=== PATIENT | female | born 1950 | race Caucasian/White ===

== ENCOUNTER 2020-11-18 22:01 | Inpatient (IN) ==
[2020-11-18] MEDS ORDERED: SODIUM CHLORIDE 0.9% 1,000 ML IV STA (22:28)
[2020-11-18] MEDS ORDERED: ASPIRIN 325 MG TABLET PO STA (22:28)
[2020-11-18 22:51] LABS: Basophils % 0.2 % (0.0-0.8); Eosinophils # 0.1 10*3/uL (0.0-0.87); Eosinophils % 0.7 % (0.00-10.9); Hematocrit 34.7 VOL% (35.7-47.0); Hemoglobin 11.4 GM/DL (12.0-16.0); Immature Granulocytes % 1.3 %; Immature Granulocytes Absolute 0.11 #; Lymphocytes # 1.5 10*3/uL (1.4-4.0); Lymphocytes % 17.7 % (21.3-54.2); Mean Corpuscular HGB Conc 32.9 GM/DL (32-36); Mean Corpuscular Volume 83.8 FL (87-102); Monocytes % 9.9 % (1.7-12.7); Neutrophils % 70.2 % (38.7-73.9); Platelet Count 246 T/CUMM (130-400); Red Blood Count 4.14 MC/CUMM (3.8-5.5); White Blood Count 8.6 T/CUMM (4-12)
[2020-11-18] MEDS ORDERED: NITROGLYCERIN SL 0.4 MG TABLET SL PRN (22:59)
[2020-11-18] MEDS ORDERED: NITROGLYCERIN SL 0.4 MG TABLET SL ONE (23:01)
[2020-11-18 23:12] LABS: INR 0.9; PT Patient Result 10.4 SECS (10.5-12.0)
[2020-11-18 23:18] LABS: Albumin 2.9 G/DL (3.4-5.0); Bilirubin,Total 0.5 MG/DL (0.20-1.00); Calcium 8.2 MG/DL (8.5-10.1); Osmolality,Calculated 289.8 MOS/KG (273-304); Potassium 3.8 MMOL/L (3.5-5.1); Total Protein 7.1 G/DL (6.4-8.2)
[2020-11-18] MEDS ORDERED: ONDANSETRON 4 MG/2 ML VIAL IV ONE (23:19)
[2020-11-18] MEDS ORDERED: MORPHINE 2 MG/1 ML SYRINGE IV STA (23:19)
[2020-11-18] MEDS ORDERED: TICAGRELOR 90 MG TABLET PO STA (23:19)
[2020-11-18] MEDS ORDERED: INSULIN REGULAR 100 UNIT/ML IV STA (23:25)
[2020-11-18] MEDS ORDERED: METOPROLOL TARTRATE 5 MG/5 ML VIAL IV STA (23:25)
[2020-11-19] MEDS ORDERED: DEXTROSE 50% 25 GM/50 ML VIAL IV PRN (03:24)
[2020-11-19] MEDS ORDERED: GLUCAGON 1 MG VIAL IM PRN (03:24)
[2020-11-19] MEDS ORDERED: DOCUSATE SODIUM 100 MG CAPSULE PO PRN (03:46)
[2020-11-19] MEDS ORDERED: hydrALAZINE 20 MG/1 ML VIAL IV PRN (03:46)
[2020-11-19] MEDS ORDERED: ACETAMINOPHEN 325 MG TABLET PO PRN (03:46)
[2020-11-19] MEDS ORDERED: MORPHINE 2 MG/1 ML SYRINGE IV PRN (03:46)
[2020-11-19 05:30] LABS: Basophils % 0.4 % (0.0-0.8); Eosinophils # 0.1 10*3/uL (0.0-0.87); Eosinophils % 0.8 % (0.00-10.9); Hematocrit 32.8 VOL% (35.7-47.0); Hemoglobin 10.8 GM/DL (12.0-16.0); Immature Granulocytes % 1.4 %; Lymphocytes # 1.9 10*3/uL (1.4-4.0); Mean Corpuscular HGB Conc 32.9 GM/DL (32-36); Mean Platelet Volume 9.9 FL (9.6-12.0); Monocytes % 12.6 % (1.7-12.7); Neutrophils % 58.8 % (38.7-73.9); Platelet Count 228 T/CUMM (130-400); Red Blood Count 3.95 MC/CUMM (3.8-5.5); White Blood Count 7.4 T/CUMM (4-12)
[2020-11-19 06:01] LABS: Calcium 8.4 MG/DL (8.5-10.1); Osmolality,Calculated 290.8 MOS/KG (273-304); Potassium 3.8 MMOL/L (3.5-5.1); Risk Ratio 7.03; VLDL Cholesterol 79.6 MG/DL
[2020-11-19] MEDS ORDERED: LABETALOL 20 MG/4 ML SYRINGE IV ONE (07:53)
[2020-11-19] MEDS ORDERED: atenoloL 25 MG TABLET PO SCH (09:00)
[2020-11-19] MEDS ORDERED: ENOXAPARIN 80 MG/0.8 ML SYRINGE SUBCUT SCH (09:00)
[2020-11-19] MEDS: ONDANSETRON 4 MG/2 ML VIAL IV PRN ×2 (09:04→19:29)
[2020-11-19] MEDS: LOSARTAN 50 MG TABLET PO SCH (09:05)
[2020-11-19] MEDS: MEMANTINE 10 MG TABLET PO SCH (09:06)
[2020-11-19] MEDS: SERTRALINE 50 MG TABLET PO SCH (09:06)
[2020-11-19] MEDS: DIVALPROEX ER 250 MG TABLET PO SCH ×2 (09:06→20:41)
[2020-11-19] MEDS: DOXAZOSIN 1 MG TABLET PO SCH ×2 (09:11→20:41)
[2020-11-19] MEDS: INSULIN REGULAR 100 UNIT/ML SUBCUT SCH ×4 (09:33→20:42)
[2020-11-19] MEDS ORDERED: MAGNESIUM SULF RIDER 2 GM/50 ML PREMIX IV PRN (10:03)
[2020-11-19] MEDS ORDERED: POTASSIUM CHLORIDE RIDER 10 MEQ/100 ML PREMIX IV PRN (10:03)
[2020-11-19] MEDS ORDERED: atenoloL 25 MG TABLET PO ONE (10:19)
[2020-11-19] MEDS: SODIUM CHLORIDE 0.9% 1,000 ML IV SCH (13:02)
[2020-11-19] MEDS ORDERED: diphenhydrAMINE CAP 50 MG CAPSULE PO ONE (13:30)
[2020-11-19] MEDS ORDERED: DIAZEPAM 5 MG TABLET PO ONE (13:30)
[2020-11-19] MEDS ORDERED: MIDAZOLAM 2 MG/2 ML VIAL ONE (14:16)
[2020-11-19] MEDS ORDERED: fentaNYL 100 MCG/2 ML VIAL ONE (14:16)
[2020-11-19] MEDS ORDERED: LIDOCAINE 1% 20 ML VIAL ONE (14:18)
[2020-11-19] MEDS ORDERED: HEPARIN 5,000 UNIT/1 ML VIAL ONE (14:56)
[2020-11-19] MEDS ORDERED: TIROFIBAN 5,000 MCG/100 ML PREMIX IV ONE (14:57)
[2020-11-19] MEDS ORDERED: TIROFIBAN 5,000 MCG/100 ML PREMIX IV SCH (15:03)
[2020-11-19] MEDS ORDERED: TICAGRELOR 90 MG TABLET ONE (15:06)
[2020-11-19] MEDS: rOPINIRole 1 MG TABLET PO SCH (20:41)
[2020-11-19] MEDS: TICAGRELOR 90 MG TABLET PO SCH (20:41)
[2020-11-19] MEDS: TEMAZEPAM 7.5 MG CAPSULE PO SCH (20:41)
[2020-11-19] MEDS: cilostazoL 50 MG TABLET PO SCH (20:47)
[2020-11-20 01:19] LABS: Basophils % 0.4 % (0.0-0.8); Eosinophils # 0.1 10*3/uL (0.0-0.87); Eosinophils % 1.1 % (0.00-10.9); Hematocrit 29.8 VOL% (35.7-47.0); Hemoglobin 9.8 GM/DL (12.0-16.0); Immature Granulocytes % 0.8 %; Immature Granulocytes Absolute 0.06 #; Lymphocytes # 1.8 10*3/uL (1.4-4.0); Lymphocytes % 22.9 % (21.3-54.2); Mean Corpuscular HGB Conc 32.9 GM/DL (32-36); Mean Corpuscular Volume 83.9 FL (87-102); Mean Platelet Volume 9.4 FL (9.6-12.0); Monocytes % 11.3 % (1.7-12.7); Neutrophils % 63.5 % (38.7-73.9); Platelet Count 202 T/CUMM (130-400); Red Blood Count 3.55 MC/CUMM (3.8-5.5); Red Cell Distribution Width 13.3 % (9.3-17.3); White Blood Count 7.9 T/CUMM (4-12)
[2020-11-20] MEDS: SODIUM CHLORIDE 0.9% 1,000 ML IV SCH (01:23)
[2020-11-20 01:35] LABS: Calcium 7.6 MG/DL (8.5-10.1); Osmolality,Calculated 283.5 MOS/KG (273-304); Potassium 3.2 MMOL/L (3.5-5.1)
[2020-11-20] MEDS ORDERED: POTASSIUM CHLORIDE 20 MEQ TABLET PO ONE (08:24)
[2020-11-20] MEDS ORDERED: MAGNESIUM OXIDE 400 MG TABLET PO ONE (08:25)
[2020-11-20] MEDS ORDERED: POTASSIUM CHLORIDE 20 MEQ TABLET PO PRN (08:39)
[2020-11-20] MEDS ORDERED: ASPIRIN EC 81 MG TABLET PO SCH (09:00)
[2020-11-20] MEDS ORDERED: LIDOCAINE 1%/EPI INJ 20 ML VIAL ONE (09:34)
[2020-11-20] MEDS: DIVALPROEX ER 250 MG TABLET PO SCH ×2 (10:19→20:30)
[2020-11-20] MEDS: atenoloL 25 MG TABLET PO SCH (10:19)
[2020-11-20] MEDS: SERTRALINE 50 MG TABLET PO SCH (10:20)
[2020-11-20] MEDS: MEMANTINE 10 MG TABLET PO SCH (10:20)
[2020-11-20] MEDS: DOXAZOSIN 1 MG TABLET PO SCH (10:20)
[2020-11-20] MEDS: ASPIRIN CHEW 81 MG TABLET PO SCH (10:20)
[2020-11-20] MEDS: cilostazoL 50 MG TABLET PO SCH ×2 (10:20→20:30)
[2020-11-20] MEDS: TICAGRELOR 90 MG TABLET PO SCH ×2 (10:20→20:29)
[2020-11-20] MEDS: LOSARTAN 50 MG TABLET PO SCH (10:21)
[2020-11-20] MEDS: ROSUVASTATIN 20 MG TABLET PO SCH (10:21)
[2020-11-20] MEDS: INSULIN REGULAR 100 UNIT/ML SUBCUT SCH ×4 (10:45→20:30)
[2020-11-20] MEDS ORDERED: LOPERAMIDE 2 MG CAPSULE PO ONE (11:16)
[2020-11-20] MEDS: TEMAZEPAM 7.5 MG CAPSULE PO SCH (20:30)
[2020-11-20] MEDS: rOPINIRole 1 MG TABLET PO SCH (20:30)
[2020-11-21 08:15] VITALS: BP 134/51
[2020-11-21 08:44] LABS: Calcium 7.9 MG/DL (8.5-10.1); Osmolality,Calculated 291.3 MOS/KG (273-304)
[2020-11-21] MEDS ORDERED: DOXAZOSIN 1 MG TABLET PO SCH (09:00)
[2020-11-21] MEDS: SERTRALINE 50 MG TABLET PO SCH (10:40)
[2020-11-21] MEDS: DIVALPROEX ER 250 MG TABLET PO SCH (10:40)
[2020-11-21] MEDS: atenoloL 25 MG TABLET PO SCH (10:40)
[2020-11-21] MEDS: ROSUVASTATIN 20 MG TABLET PO SCH (10:40)
[2020-11-21] MEDS: cilostazoL 50 MG TABLET PO SCH (10:40)
[2020-11-21] MEDS: MEMANTINE 10 MG TABLET PO SCH (10:41)
[2020-11-21] MEDS: ASPIRIN CHEW 81 MG TABLET PO SCH (10:41)
[2020-11-21] MEDS: LOSARTAN 50 MG TABLET PO SCH (10:41)
[2020-11-21] MEDS: TICAGRELOR 90 MG TABLET PO SCH (10:41)
[2020-11-21] MEDS: INSULIN REGULAR 100 UNIT/ML SUBCUT SCH (10:46)
== END 2020-11-21 11:44 | disposition home or self-care (01) | DRG 247 ==
LOC: N.ED 22:01 → N.EDINP 22:01 → N.TELES 11-19 01:55 → SUATTDRO 11-19 15:06
PROVIDERS: ADMIT Hospitalist; ATTEND Internal Medicine

== ENCOUNTER 2021-02-14 18:13 | Inpatient (IN) ==
[2021-02-14] MEDS ORDERED: ASPIRIN 325 MG TABLET PO STA (18:53)
[2021-02-14 19:08] LABS: Basophils % 0.4 % (0.0-0.8); Eosinophils # 0.1 10*3/uL (0.0-0.87); Hematocrit 32.5 VOL% (35.7-47.0); Hemoglobin 10.4 GM/DL (12.0-16.0); Immature Granulocytes % 0.5 %; Immature Granulocytes Absolute 0.04 #; Lymphocytes # 1.7 10*3/uL (1.4-4.0); Lymphocytes % 21.9 % (21.3-54.2); Mean Corpuscular Volume 79.3 FL (87-102); Mean Platelet Volume 10.3 FL (9.6-12.0); Monocytes % 8.5 % (1.7-12.7); Neutrophils % 67.7 % (38.7-73.9); Platelet Count 251 T/CUMM (130-400); White Blood Count 7.9 T/CUMM (4-12)
[2021-02-14 19:23] LABS: Calcium 8.9 MG/DL (8.5-10.1); Osmolality,Calculated 290.5 MOS/KG (273-304); Potassium 4.3 MMOL/L (3.5-5.1)
[2021-02-14] MEDS ORDERED: INSULIN REGULAR 100 UNIT/ML IV STA (19:26)
[2021-02-14] MEDS ORDERED: ENOXAPARIN 80 MG/0.8 ML SYRINGE SUBCUT STA (19:40)
[2021-02-14] MEDS ORDERED: DEXTROSE 50% 25 GM/50 ML SYRINGE IV PRN (19:48)
[2021-02-14] MEDS ORDERED: DEXTROSE 50% 25 GM/50 ML VIAL IV PRN (19:48)
[2021-02-14] MEDS ORDERED: GLUCAGON 1 MG VIAL IM PRN ×2 (19:48)
[2021-02-14] MEDS ORDERED: ONDANSETRON 4 MG/2 ML VIAL IV PRN (19:48)
[2021-02-14] MEDS ORDERED: HEPARIN DRIP 25,000 UNITS/500 ML PREMIX IV SCH (20:30)
[2021-02-14] MEDS ORDERED: MORPHINE 10 MG/1 ML VIAL IV STA (20:40)
[2021-02-14] MEDS ORDERED: MORPHINE 2 MG/1 ML SYRINGE ONE (20:42)
[2021-02-14] MEDS ORDERED: DIVALPROEX ER 250 MG TABLET PO SCH (21:00)
[2021-02-14] MEDS ORDERED: MORPHINE 2 MG/1 ML SYRINGE IV STA (21:01)
[2021-02-14] MEDS: TICAGRELOR 90 MG TABLET PO SCH (21:51)
[2021-02-14] MEDS: INSULIN LISPRO 100 UNIT/ML SUBCUT SCH (22:39)
[2021-02-14] MEDS: cilostazoL 50 MG TABLET PO SCH (22:45)
[2021-02-15] MEDS ORDERED: ALBUTEROL/IPRATROPIUM 3 ML NEB RESP TX PRN (01:03)
[2021-02-15] MEDS ORDERED: ALBUTEROL/IPRATROPIUM 3 ML NEB RESP TX ONE (01:03)
[2021-02-15] MEDS: NITROGLYCERIN SL 0.4 MG TABLET SL PRN ×2 (03:22→06:23)
[2021-02-15 07:06] LABS: Basophils % 0.4 % (0.0-0.8); Eosinophils # 0.1 10*3/uL (0.0-0.87); Hematocrit 33.5 VOL% (35.7-47.0); Hemoglobin 10.5 GM/DL (12.0-16.0); Immature Granulocytes % 0.6 %; Immature Granulocytes Absolute 0.04 #; Lymphocytes # 1.6 10*3/uL (1.4-4.0); Lymphocytes % 23.1 % (21.3-54.2); Mean Corpuscular HGB Conc 31.3 GM/DL (32-36); Mean Corpuscular Volume 80.7 FL (87-102); Mean Platelet Volume 10.2 FL (9.6-12.0); Monocytes % 7.9 % (1.7-12.7); Platelet Count 249 T/CUMM (130-400); Red Blood Count 4.15 MC/CUMM (3.8-5.5); Red Cell Distribution Width 14.2 % (9.3-17.3); White Blood Count 7.1 T/CUMM (4-12)
[2021-02-15 07:30] LABS: Osmolality,Calculated 277.9 MOS/KG (273-304); Potassium 4.5 MMOL/L (3.5-5.1); Risk Ratio 7.83; Thyroid Stimulating Hormone 2.2 uIU/ml (0.358-3.74); VLDL Cholesterol 57.6 MG/DL
[2021-02-15] MEDS ORDERED: TEMAZEPAM 7.5 MG CAPSULE PO SCH (09:00)
[2021-02-15] MEDS ORDERED: ENOXAPARIN 80 MG/0.8 ML SYRINGE SUBCUT SCH (09:00)
[2021-02-15] MEDS ORDERED: SERTRALINE 50 MG TABLET PO SCH (09:00)
[2021-02-15] MEDS ORDERED: DOXAZOSIN 1 MG TABLET PO SCH (09:00)
[2021-02-15] MEDS ORDERED: atenoloL 25 MG TABLET PO SCH (09:00)
[2021-02-15] MEDS ORDERED: diphenhydrAMINE CAP 25 MG CAPSULE PO ONE (09:47)
[2021-02-15] MEDS ORDERED: DIAZEPAM 5 MG TABLET PO ONE (09:47)
[2021-02-15] MEDS: INSULIN LISPRO 100 UNIT/ML SUBCUT SCH ×5 (09:56→21:11)
[2021-02-15] MEDS ORDERED: MORPHINE 2 MG/1 ML SYRINGE IV ONE (09:57)
[2021-02-15] MEDS ORDERED: carvediloL 3.125 MG TABLET PO SCH (10:00)
[2021-02-15] MEDS ORDERED: LOSARTAN 50 MG TABLET PO SCH (10:00)
[2021-02-15] MEDS ORDERED: SODIUM CHLORIDE 0.9% 500 ML IV SCH (10:00)
[2021-02-15] MEDS: MEMANTINE 10 MG TABLET PO SCH ×2 (10:01→10:21)
[2021-02-15] MEDS: ASPIRIN CHEW 81 MG TABLET PO SCH (10:20)
[2021-02-15] MEDS ORDERED: LIDOCAINE 1% 20 ML VIAL ONE (10:20)
[2021-02-15] MEDS: ROSUVASTATIN 20 MG TABLET PO SCH (10:20)
[2021-02-15] MEDS: TICAGRELOR 90 MG TABLET PO SCH ×2 (10:20→21:19)
[2021-02-15] MEDS: PANTOPRAZOLE 40 MG TABLET PO SCH (10:20)
[2021-02-15] MEDS: rOPINIRole 1 MG TABLET PO SCH (10:21)
[2021-02-15] MEDS: VENLAFAXINE XR 37.5 MG CAPSULE PO SCH (10:21)
[2021-02-15] MEDS: cilostazoL 50 MG TABLET PO SCH (10:21)
[2021-02-15] MEDS ORDERED: fentaNYL 100 MCG/2 ML VIAL ONE (11:11)
[2021-02-15] MEDS ORDERED: MIDAZOLAM 2 MG/2 ML VIAL ONE (11:11)
[2021-02-15] MEDS ORDERED: HEPARIN 5,000 UNIT/1 ML VIAL ONE (11:23)
[2021-02-15] MEDS ORDERED: FUROSEMIDE 40 MG/4 ML VIAL ONE (11:56)
[2021-02-15] MEDS: INSULIN GLARGINE 100 UNIT/ML SUBCUT SCH (11:57)
[2021-02-15] MEDS ORDERED: KETOROLAC 0.5% OPH SOLN 5 ML BOTTLE LEFT EYE SCH (13:00)
[2021-02-15] MEDS ORDERED: OFLOXACIN 0.3% OPH SOLN 5 ML BOTTLE RIGHT EYE SCH (13:00)
[2021-02-15] MEDS ORDERED: prednisoLONE ACETATE 1% OPH SUSP 5 ML BOTTLE LEFT EYE SCH (13:00)
[2021-02-15] MEDS: SACUBITRIL/VALSARTAN 49-51 MG TABLET PO SCH ×2 (14:33→21:18)
[2021-02-15] MEDS: GABAPENTIN 100 MG CAPSULE PO SCH ×2 (14:33→21:19)
[2021-02-15] MEDS: FUROSEMIDE 20 MG/2 ML VIAL IV SCH (17:39)
[2021-02-15] MEDS: carvediloL 12.5 MG TABLET PO SCH (21:20)
[2021-02-15] MEDS: TEMAZEPAM 15 MG CAPSULE PO SCH (23:28)
[2021-02-16 05:20] LABS: Basophils % 0.3 % (0.0-0.8); Eosinophils # 0.1 10*3/uL (0.0-0.87); Eosinophils % 1.2 % (0.00-10.9); Hematocrit 34.5 VOL% (35.7-47.0); Immature Granulocytes % 0.4 %; Immature Granulocytes Absolute 0.04 #; Lymphocytes # 1.9 10*3/uL (1.4-4.0); Lymphocytes % 20.6 % (21.3-54.2); Mean Corpuscular HGB Conc 31.9 GM/DL (32-36); Mean Corpuscular Volume 81.2 FL (87-102); Mean Platelet Volume 10.4 FL (9.6-12.0); Monocytes % 8.8 % (1.7-12.7); Neutrophils % 68.7 % (38.7-73.9); Platelet Count 274 T/CUMM (130-400); Red Blood Count 4.25 MC/CUMM (3.8-5.5); Red Cell Distribution Width 14.3 % (9.3-17.3)
[2021-02-16 06:01] LABS: Calcium 8.5 MG/DL (8.5-10.1); Potassium 3.9 MMOL/L (3.5-5.1)
[2021-02-16] MEDS: FUROSEMIDE 20 MG/2 ML VIAL IV SCH ×2 (09:06→17:43)
[2021-02-16] MEDS: INSULIN LISPRO 100 UNIT/ML SUBCUT SCH ×5 (10:15→21:16)
[2021-02-16] MEDS: ASPIRIN CHEW 81 MG TABLET PO SCH (10:15)
[2021-02-16] MEDS: INSULIN GLARGINE 100 UNIT/ML SUBCUT SCH (10:16)
[2021-02-16] MEDS: rOPINIRole 1 MG TABLET PO SCH (10:18)
[2021-02-16] MEDS: MEMANTINE 10 MG TABLET PO SCH (10:18)
[2021-02-16] MEDS: TICAGRELOR 90 MG TABLET PO SCH ×2 (10:18→21:15)
[2021-02-16] MEDS: ROSUVASTATIN 20 MG TABLET PO SCH (10:18)
[2021-02-16] MEDS: carvediloL 12.5 MG TABLET PO SCH ×2 (10:18→20:01)
[2021-02-16] MEDS: PANTOPRAZOLE 40 MG TABLET PO SCH (10:18)
[2021-02-16] MEDS: VENLAFAXINE XR 37.5 MG CAPSULE PO SCH (10:18)
[2021-02-16] MEDS: SACUBITRIL/VALSARTAN 49-51 MG TABLET PO SCH ×2 (10:18→20:01)
[2021-02-16] MEDS: GABAPENTIN 100 MG CAPSULE PO SCH ×3 (10:18→21:16)
[2021-02-16 14:28] LABS: Bacteria,Urine Moderate /HPF (Few); Bilirubin,Urine Negative (Negative); Blood, Urine Small mg/dL (Negative); Glucose,Urine (UA) >=500 mg/dL (Negative); Ketones,Urine Negative (Negative); Mucus,Urine Occasional /LPF (Occasional); Nitrite,Urine Negative (Negative); Protein,Urine 100 MG/DL; RBC,Urine 23 /HPF (0-4); Squamous Epithelial Cell,Urine Occasional /HPF (0-10); Urine Appearance CLOUDY (Clear); Urine Color Yellow (Yellow); Urine Specific Gravity 1.018 (1.001-1.035); Urine Urobilinogen < 2.0 EU/DL (0.2-1.0)
[2021-02-16] MEDS: ACETAMINOPHEN 325 MG TABLET PO PRN (14:43)
[2021-02-16] MEDS: TEMAZEPAM 15 MG CAPSULE PO SCH (21:15)
[2021-02-17 05:30] LABS: Basophils % 0.5 % (0.0-0.8); Eosinophils # 0.1 10*3/uL (0.0-0.87); Eosinophils % 1.6 % (0.00-10.9); Hemoglobin 10.5 GM/DL (12.0-16.0); Immature Granulocytes % 0.3 %; Immature Granulocytes Absolute 0.02 #; Lymphocytes # 2.5 10*3/uL (1.4-4.0); Mean Corpuscular HGB Conc 32.8 GM/DL (32-36); Mean Corpuscular Volume 80.4 FL (87-102); Mean Platelet Volume 10.1 FL (9.6-12.0); Monocytes % 9.1 % (1.7-12.7); Neutrophils % 57.5 % (38.7-73.9); Platelet Count 294 T/CUMM (130-400); Red Blood Count 3.98 MC/CUMM (3.8-5.5); Red Cell Distribution Width 14.1 % (9.3-17.3); White Blood Count 7.9 T/CUMM (4-12)
[2021-02-17 05:41] LABS: Calcium 8.6 MG/DL (8.5-10.1); Osmolality,Calculated 277.4 MOS/KG (273-304)
[2021-02-17] MEDS: FUROSEMIDE 20 MG/2 ML VIAL IV SCH ×2 (09:32→15:05)
[2021-02-17] MEDS: INSULIN LISPRO 100 UNIT/ML SUBCUT SCH ×4 (09:35→21:35)
[2021-02-17] MEDS: ASPIRIN CHEW 81 MG TABLET PO SCH (09:36)
[2021-02-17] MEDS: INSULIN GLARGINE 100 UNIT/ML SUBCUT SCH (09:36)
[2021-02-17] MEDS: ROSUVASTATIN 20 MG TABLET PO SCH (09:36)
[2021-02-17] MEDS: SACUBITRIL/VALSARTAN 49-51 MG TABLET PO SCH ×2 (09:36→21:35)
[2021-02-17] MEDS: VENLAFAXINE XR 37.5 MG CAPSULE PO SCH (09:36)
[2021-02-17] MEDS: PANTOPRAZOLE 40 MG TABLET PO SCH (09:37)
[2021-02-17] MEDS: rOPINIRole 1 MG TABLET PO SCH (09:37)
[2021-02-17] MEDS: GABAPENTIN 100 MG CAPSULE PO SCH ×3 (09:37→21:35)
[2021-02-17] MEDS: carvediloL 12.5 MG TABLET PO SCH ×2 (09:37→21:35)
[2021-02-17] MEDS: MEMANTINE 10 MG TABLET PO SCH (09:37)
[2021-02-17] MEDS: TICAGRELOR 90 MG TABLET PO SCH ×2 (09:40→21:35)
[2021-02-17] MEDS ORDERED: POTASSIUM CHLORIDE 20 MEQ TABLET PO SCH (10:15)
[2021-02-17] MEDS ORDERED: POTASSIUM CHLORIDE 20 MEQ TABLET PO PRN (14:51)
[2021-02-17] MEDS ORDERED: cefTRIAXone 1,000 MG in SODIUM CHLORIDE 0.9% 100 ML IV SCH (15:00)
[2021-02-17] MEDS: TEMAZEPAM 15 MG CAPSULE PO SCH (21:35)
[2021-02-18 04:47] LABS: White Blood Count 8.5 T/CUMM (4-12)
[2021-02-18 04:48] LABS: Basophils % 0.2 % (0.0-0.8); Eosinophils # 0.1 10*3/uL (0.0-0.87); Eosinophils % 1.5 % (0.00-10.9); Hemoglobin 10.7 GM/DL (12.0-16.0); Immature Granulocytes % 0.4 %; Immature Granulocytes Absolute 0.03 #; Lymphocytes # 2.6 10*3/uL (1.4-4.0); Lymphocytes % 30.8 % (21.3-54.2); Mean Corpuscular HGB Conc 32.4 GM/DL (32-36); Mean Corpuscular Volume 80.9 FL (87-102); Monocytes % 9.6 % (1.7-12.7); Neutrophils % 57.5 % (38.7-73.9); Platelet Count 292 T/CUMM (130-400); Red Blood Count 4.08 MC/CUMM (3.8-5.5); Red Cell Distribution Width 14.4 % (9.3-17.3)
[2021-02-18 05:12] LABS: Calcium 8.4 MG/DL (8.5-10.1); Osmolality,Calculated 283.7 MOS/KG (273-304); Potassium 3.1 MMOL/L (3.5-5.1)
[2021-02-18] MEDS: INSULIN LISPRO 100 UNIT/ML SUBCUT SCH ×2 (08:53→12:20)
[2021-02-18] MEDS: INSULIN GLARGINE 100 UNIT/ML SUBCUT SCH (09:29)
[2021-02-18] MEDS: ACETAMINOPHEN 325 MG TABLET PO PRN (09:31)
[2021-02-18] MEDS: TICAGRELOR 90 MG TABLET PO SCH (09:31)
[2021-02-18] MEDS: carvediloL 12.5 MG TABLET PO SCH (09:31)
[2021-02-18] MEDS: PANTOPRAZOLE 40 MG TABLET PO SCH (09:32)
[2021-02-18] MEDS: GABAPENTIN 100 MG CAPSULE PO SCH (09:32)
[2021-02-18] MEDS: SACUBITRIL/VALSARTAN 49-51 MG TABLET PO SCH (09:32)
[2021-02-18] MEDS: VENLAFAXINE XR 37.5 MG CAPSULE PO SCH (09:32)
[2021-02-18] MEDS: MEMANTINE 10 MG TABLET PO SCH (09:32)
[2021-02-18] MEDS: ASPIRIN CHEW 81 MG TABLET PO SCH (09:32)
[2021-02-18] MEDS: ROSUVASTATIN 20 MG TABLET PO SCH (09:32)
[2021-02-18] MEDS: rOPINIRole 1 MG TABLET PO SCH (09:33)
[2021-02-18] MEDS: FUROSEMIDE 20 MG/2 ML VIAL IV SCH (09:34)
[2021-02-18 12:30] VITALS: BP 116/52
[2021-02-19] MEDS ORDERED: FUROSEMIDE 40 MG TABLET PO SCH (09:00)
[2021-02-23] MEDS ORDERED: VENLAFAXINE XR 75 MG CAPSULE PO SCH (09:00)
== END 2021-02-18 15:01 | disposition home health service (06) | DRG 280 ==
LOC: N.ED 18:13 → N.EDINP 20:14 → SUATTDRO 20:14 → N.TELEN 21:01
PROVIDERS: ADMIT Internal Medicine; ATTEND Internal Medicine Geriatric Medicine

== ENCOUNTER 2021-05-06 18:15 | Inpatient (IN) ==
[2021-05-06] MEDS ORDERED: ASPIRIN EC 325 MG TABLET PO STA (19:43)
[2021-05-06] MEDS ORDERED: NITROGLYCERIN SL 0.4 MG TABLET SL STA (19:43)
[2021-05-06 19:52] LABS: Basophils % 0.5 % (0.0-0.8); Eosinophils # 0.1 10*3/uL (0.0-0.87); Eosinophils % 0.9 % (0.00-10.9); Hematocrit 32.5 VOL% (35.7-47.0); Immature Granulocytes % 0.5 %; Immature Granulocytes Absolute 0.04 #; Lymphocytes # 1.9 10*3/uL (1.4-4.0); Lymphocytes % 25.1 % (21.3-54.2); Mean Corpuscular HGB Conc 33.8 GM/DL (32-36); Mean Corpuscular Volume 79.5 FL (87-102); Mean Platelet Volume 9.9 FL (9.6-12.0); Monocytes % 8.5 % (1.7-12.7); Neutrophils % 64.5 % (38.7-73.9); Platelet Count 244 T/CUMM (130-400); Red Blood Count 4.09 MC/CUMM (3.8-5.5); Red Cell Distribution Width 14.2 % (9.3-17.3); White Blood Count 7.5 T/CUMM (4-12)
[2021-05-06 19:59] LABS: PT Patient Result 10.9 SECS (10.5-12.0)
[2021-05-06 20:00] LABS: Albumin 3.1 G/DL (3.4-5.0); Bilirubin,Total 0.5 MG/DL (0.20-1.00); Osmolality,Calculated 285.9 MOS/KG (273-304); Potassium 3.6 MMOL/L (3.5-5.1); Total Protein 7.3 G/DL (6.4-8.2)
[2021-05-06] MEDS ORDERED: LABETALOL 20 MG/4 ML SYRINGE IV STA (20:04)
[2021-05-06] MEDS ORDERED: ONDANSETRON 4 MG/2 ML VIAL IV ONE (20:04)
[2021-05-06] MEDS ORDERED: HYDROmorphone 2 MG/1 ML VIAL IV STA (20:04)
[2021-05-06] MEDS ORDERED: INSULIN REGULAR 100 UNIT/ML IV STA (20:04)
[2021-05-06] MEDS ORDERED: FUROSEMIDE 40 MG/4 ML VIAL IV STA (20:16)
[2021-05-06] MEDS ORDERED: MORPHINE 2 MG/1 ML SYRINGE IV PRN (22:49)
[2021-05-06] MEDS ORDERED: hydrALAZINE 20 MG/1 ML VIAL IV PRN (22:49)
[2021-05-06] MEDS ORDERED: ACETAMINOPHEN 325 MG TABLET PO PRN (22:49)
[2021-05-06] MEDS ORDERED: GLUCAGON 1 MG VIAL IM PRN (22:49)
[2021-05-06] MEDS ORDERED: ONDANSETRON 4 MG/2 ML VIAL IV PRN (22:49)
[2021-05-06] MEDS ORDERED: DEXTROSE 10% 250 ML BAG IV PRN (23:05)
[2021-05-06 23:44] LABS: Bacteria,Urine Many /HPF (Few); Bilirubin,Urine Negative (Negative); Blood, Urine Small mg/dL (Negative); Glucose,Urine (UA) >=500 mg/dL (Negative); Ketones,Urine Negative (Negative); Mucus,Urine Occasional /LPF (Occasional); Nitrite,Urine Negative (Negative); Protein,Urine 100 MG/DL; RBC,Urine 2 /HPF (0-4); Squamous Epithelial Cell,Urine Occasional /HPF (0-10); Urine Appearance CLEAR (Clear); Urine Color Straw (Yellow); Urine Specific Gravity 1.013 (1.001-1.035); Urine Urobilinogen < 2.0 EU/DL (<2.0)
[2021-05-07] MEDS: cefTRIAXone 1,000 MG in SODIUM CHLORIDE 0.9% 100 ML IV SCH (01:24)
[2021-05-07] MEDS ORDERED: INSULIN LISPRO 100 UNIT/ML SUBCUT STA (01:26)
[2021-05-07 03:34] LABS: Basophils % 0.4 % (0.0-0.8); Eosinophils # 0.1 10*3/uL (0.0-0.87); Eosinophils % 0.8 % (0.00-10.9); Hematocrit 33.8 VOL% (35.7-47.0); Hemoglobin 11.2 GM/DL (12.0-16.0); Immature Granulocytes % 0.3 %; Immature Granulocytes Absolute 0.02 #; Lymphocytes # 2.5 10*3/uL (1.4-4.0); Lymphocytes % 32.8 % (21.3-54.2); Mean Corpuscular HGB Conc 33.1 GM/DL (32-36); Mean Corpuscular Volume 80.1 FL (87-102); Mean Platelet Volume 9.6 FL (9.6-12.0); Monocytes % 10.2 % (1.7-12.7); Neutrophils % 55.5 % (38.7-73.9); Platelet Count 236 T/CUMM (130-400); Red Blood Count 4.22 MC/CUMM (3.8-5.5); Red Cell Distribution Width 14.3 % (9.3-17.3); White Blood Count 7.7 T/CUMM (4-12)
[2021-05-07] MEDS ORDERED: ASPIRIN CHEW 81 MG TABLET PO ONE (04:15)
[2021-05-07 04:31] LABS: Calcium 8.9 MG/DL (8.5-10.1); Potassium 3.2 MMOL/L (3.5-5.1); Thyroid Stimulating Hormone 5.28 uIU/ml (0.358-3.74)
[2021-05-07] MEDS: ENOXAPARIN 80 MG/0.8 ML SYRINGE SUBCUT SCH ×2 (04:40→21:47)
[2021-05-07] MEDS: NITROGLYCERIN 2% OINT 1 INCH/GM PACK TOP SCH ×2 (04:41→09:35)
[2021-05-07] MEDS ORDERED: POTASSIUM CHLORIDE RIDER 10 MEQ/100 ML PREMIX IV PRN (05:58)
[2021-05-07] MEDS ORDERED: MAGNESIUM SULF RIDER 2 GM/50 ML PREMIX IV PRN (05:58)
[2021-05-07] MEDS ORDERED: MAGNESIUM SULF RIDER 4 GM/100 ML PREMIX IV PRN (05:58)
[2021-05-07] MEDS ORDERED: FUROSEMIDE 40 MG/4 ML VIAL IV SCH (08:00)
[2021-05-07] MEDS ORDERED: SERTRALINE 50 MG TABLET PO SCH (09:00)
[2021-05-07] MEDS ORDERED: METOPROLOL TARTRATE 25 MG TABLET PO SCH (09:00)
[2021-05-07] MEDS: INSULIN REGULAR 100 UNIT/ML SUBCUT SCH ×4 (09:15→21:47)
[2021-05-07] MEDS: ASPIRIN CHEW 81 MG TABLET PO SCH (09:34)
[2021-05-07] MEDS: ATORVASTATIN 80 MG TABLET PO SCH (09:34)
[2021-05-07] MEDS: MEMANTINE 10 MG TABLET PO SCH (09:34)
[2021-05-07] MEDS: SACUBITRIL/VALSARTAN 49-51 MG TABLET PO SCH ×2 (09:34→21:46)
[2021-05-07] MEDS: POTASSIUM CHLORIDE 20 MEQ TABLET PO PRN ×4 (09:34→16:52)
[2021-05-07] MEDS: PANTOPRAZOLE 40 MG TABLET PO SCH (09:35)
[2021-05-07] MEDS: VENLAFAXINE XR 37.5 MG CAPSULE PO SCH (09:35)
[2021-05-07] MEDS: TICAGRELOR 90 MG TABLET PO SCH ×2 (09:46→21:47)
[2021-05-07] MEDS ORDERED: SERTRALINE 50 MG TABLET PO ONE (10:26)
[2021-05-07] MEDS: ACETAMINOPHEN 325 MG TABLET PO SCH ×2 (11:41→21:47)
[2021-05-07] MEDS: ISOSORBIDE DINITRATE 20 MG TABLET PO SCH ×2 (11:41→21:46)
[2021-05-07] MEDS: LIDOCAINE 5% PATCH TRANSDERM SCH (11:41)
[2021-05-07] MEDS ORDERED: GABAPENTIN 100 MG CAPSULE PO ONE (11:45)
[2021-05-07] MEDS ORDERED: GABAPENTIN 100 MG CAPSULE PO SCH (15:00)
[2021-05-07] MEDS: GABAPENTIN 100 MG CAPSULE PO SCH ×2 (16:51→21:46)
[2021-05-07] MEDS: carvediloL 25 MG TABLET PO SCH (21:46)
[2021-05-07] MEDS: TEMAZEPAM 15 MG CAPSULE PO SCH (21:47)
[2021-05-07] MEDS: INSULIN GLARGINE 100 UNIT/ML SUBCUT SCH (21:49)
[2021-05-08] MEDS: cefTRIAXone 1,000 MG in SODIUM CHLORIDE 0.9% 100 ML IV SCH (00:28)
[2021-05-08 06:44] LABS: Basophils % 0.4 % (0.0-0.8); Eosinophils # 0.1 10*3/uL (0.0-0.87); Eosinophils % 1.1 % (0.00-10.9); Hematocrit 31.3 VOL% (35.7-47.0); Hemoglobin 10.2 GM/DL (12.0-16.0); Immature Granulocytes % 0.4 %; Immature Granulocytes Absolute 0.03 #; Lymphocytes # 2.2 10*3/uL (1.4-4.0); Lymphocytes % 30.5 % (21.3-54.2); Mean Corpuscular HGB Conc 32.6 GM/DL (32-36); Mean Corpuscular Volume 81.3 FL (87-102); Mean Platelet Volume 9.7 FL (9.6-12.0); Monocytes % 9.1 % (1.7-12.7); Neutrophils % 58.5 % (38.7-73.9); Platelet Count 223 T/CUMM (130-400); Red Blood Count 3.85 MC/CUMM (3.8-5.5); Red Cell Distribution Width 14.6 % (9.3-17.3); White Blood Count 7.1 T/CUMM (4-12)
[2021-05-08 07:01] LABS: Calcium 8.6 MG/DL (8.5-10.1); Osmolality,Calculated 277.4 MOS/KG (273-304); Potassium 4.8 MMOL/L (3.5-5.1); Risk Ratio 6.61
[2021-05-08] MEDS: INSULIN REGULAR 100 UNIT/ML SUBCUT SCH ×4 (08:13→21:20)
[2021-05-08] MEDS ORDERED: DIAZEPAM 5 MG TABLET PO ONE (09:08)
[2021-05-08] MEDS ORDERED: diphenhydrAMINE CAP 25 MG CAPSULE PO ONE (09:08)
[2021-05-08] MEDS ORDERED: SODIUM CHLORIDE 0.9% 1,000 ML IV SCH (09:30)
[2021-05-08] MEDS: ASPIRIN CHEW 81 MG TABLET PO SCH (10:56)
[2021-05-08] MEDS: TICAGRELOR 90 MG TABLET PO SCH ×2 (10:57→21:23)
[2021-05-08] MEDS: carvediloL 25 MG TABLET PO SCH ×2 (10:58→21:24)
[2021-05-08] MEDS: DIVALPROEX ER 500 MG TABLET PO SCH (10:58)
[2021-05-08] MEDS: VENLAFAXINE XR 37.5 MG CAPSULE PO SCH (11:00)
[2021-05-08] MEDS: SACUBITRIL/VALSARTAN 49-51 MG TABLET PO SCH ×2 (11:01→21:24)
[2021-05-08] MEDS: FUROSEMIDE 40 MG TABLET PO SCH (11:03)
[2021-05-08] MEDS: ISOSORBIDE DINITRATE 20 MG TABLET PO SCH ×2 (11:03→21:24)
[2021-05-08] MEDS: LIDOCAINE 5% PATCH TRANSDERM SCH (11:05)
[2021-05-08] MEDS: ATORVASTATIN 80 MG TABLET PO SCH (11:05)
[2021-05-08] MEDS: GABAPENTIN 100 MG CAPSULE PO SCH ×3 (11:07→21:23)
[2021-05-08] MEDS: MEMANTINE 10 MG TABLET PO SCH (11:07)
[2021-05-08] MEDS: PANTOPRAZOLE 40 MG TABLET PO SCH (11:13)
[2021-05-08] MEDS: rOPINIRole 0.25 MG TABLET PO SCH (11:14)
[2021-05-08] MEDS: ACETAMINOPHEN 325 MG TABLET PO SCH ×2 (11:14→21:23)
[2021-05-08] MEDS: ENOXAPARIN 80 MG/0.8 ML SYRINGE SUBCUT SCH ×2 (11:15→21:21)
[2021-05-08] MEDS: SERTRALINE 100 MG TABLET PO SCH (11:21)
[2021-05-08] MEDS ORDERED: MIDAZOLAM 2 MG/2 ML VIAL ONE (17:07)
[2021-05-08] MEDS ORDERED: LIDOCAINE 1% 20 ML VIAL ONE (17:07)
[2021-05-08] MEDS ORDERED: fentaNYL 100 MCG/2 ML VIAL ONE (17:07)
[2021-05-08] MEDS ORDERED: GLUCAGON 1 MG VIAL IM PRN (18:01)
[2021-05-08] MEDS ORDERED: DEXTROSE 10% 25 GM/250 ML BAG IV PRN (18:13)
[2021-05-08] MEDS: INSULIN GLARGINE 100 UNIT/ML SUBCUT SCH (21:20)
[2021-05-08] MEDS: TEMAZEPAM 15 MG CAPSULE PO SCH (21:25)
[2021-05-09] MEDS: cefTRIAXone 1,000 MG in SODIUM CHLORIDE 0.9% 100 ML IV SCH (00:07)
[2021-05-09 06:41] LABS: Basophils % 0.3 % (0.0-0.8); Eosinophils # 0.1 10*3/uL (0.0-0.87); Eosinophils % 1.6 % (0.00-10.9); Hematocrit 31.1 VOL% (35.7-47.0); Immature Granulocytes % 0.3 %; Immature Granulocytes Absolute 0.02 #; Lymphocytes % 30.8 % (21.3-54.2); Mean Corpuscular HGB Conc 32.2 GM/DL (32-36); Mean Corpuscular Volume 82.7 FL (87-102); Mean Platelet Volume 9.8 FL (9.6-12.0); Monocytes % 8.5 % (1.7-12.7); Neutrophils % 58.5 % (38.7-73.9); Platelet Count 207 T/CUMM (130-400); Red Blood Count 3.76 MC/CUMM (3.8-5.5); Red Cell Distribution Width 14.7 % (9.3-17.3); White Blood Count 6.3 T/CUMM (4-12)
[2021-05-09 06:59] LABS: Calcium 7.9 MG/DL (8.5-10.1); Osmolality,Calculated 293.3 MOS/KG (273-304); Potassium 3.6 MMOL/L (3.5-5.1)
[2021-05-09] MEDS ORDERED: EZETIMIBE 10 MG TABLET PO SCH (09:00)
[2021-05-09] MEDS: carvediloL 25 MG TABLET PO SCH (09:26)
[2021-05-09] MEDS: SERTRALINE 100 MG TABLET PO SCH (09:35)
[2021-05-09] MEDS: POTASSIUM CHLORIDE 20 MEQ TABLET PO PRN (09:35)
[2021-05-09] MEDS: DIVALPROEX ER 500 MG TABLET PO SCH (09:36)
[2021-05-09] MEDS: TICAGRELOR 90 MG TABLET PO SCH (09:36)
[2021-05-09] MEDS: VENLAFAXINE XR 37.5 MG CAPSULE PO SCH (09:36)
[2021-05-09] MEDS: MEMANTINE 10 MG TABLET PO SCH (09:37)
[2021-05-09] MEDS: GABAPENTIN 100 MG CAPSULE PO SCH (09:37)
[2021-05-09] MEDS: ISOSORBIDE DINITRATE 20 MG TABLET PO SCH (09:37)
[2021-05-09] MEDS: PANTOPRAZOLE 40 MG TABLET PO SCH (09:37)
[2021-05-09] MEDS: FUROSEMIDE 40 MG TABLET PO SCH (09:37)
[2021-05-09] MEDS: ASPIRIN CHEW 81 MG TABLET PO SCH (09:37)
[2021-05-09] MEDS: SACUBITRIL/VALSARTAN 49-51 MG TABLET PO SCH (09:37)
[2021-05-09] MEDS: rOPINIRole 0.25 MG TABLET PO SCH (09:37)
[2021-05-09] MEDS: ATORVASTATIN 80 MG TABLET PO SCH (09:37)
[2021-05-09 09:38] VITALS: BP 124/58
[2021-05-09] MEDS: ACETAMINOPHEN 325 MG TABLET PO SCH (09:38)
[2021-05-09] MEDS: INSULIN REGULAR 100 UNIT/ML SUBCUT SCH ×2 (09:39→13:09)
[2021-05-09] MEDS: ENOXAPARIN 80 MG/0.8 ML SYRINGE SUBCUT SCH (09:39)
[2021-05-09] MEDS: LIDOCAINE 5% PATCH TRANSDERM SCH (09:40)
[2021-05-10] MEDS ORDERED: ENOXAPARIN 80 MG/0.8 ML SYRINGE SUBCUT SCH (09:00)
== END 2021-05-09 14:01 | disposition home or self-care (01) | DRG 281 ==
LOC: EDUNIT# → EDBD → N.EDINP 18:15 → N.ED 18:15 → SUATTDRO 22:49 → N.TELES 05-07 01:11 → SUATTDRO 05-07 09:25
PROVIDERS: ADMIT Internal Medicine; ATTEND Internal Medicine

== ENCOUNTER 2021-06-12 16:46 | Observation (INO) ==
[2021-06-12] MEDS ORDERED: NITROGLYCERIN SL 0.4 MG TABLET SL ONE (17:12)
[2021-06-12] MEDS ORDERED: ENOXAPARIN 100 MG/ML SYRINGE SUBCUT STA (17:13)
[2021-06-12] MEDS: NITROGLYCERIN SL 0.4 MG TABLET SL PRN ×2 (17:15→21:41)
[2021-06-12] MEDS ORDERED: ENOXAPARIN 80 MG/0.8 ML SYRINGE SUBCUT ONE (17:17)
[2021-06-12 17:39] LABS: Basophils % 0.6 % (0.0-0.8); Eosinophils # 0.1 10*3/uL (0.0-0.87); Eosinophils % 1.2 % (0.00-10.9); Hematocrit 29.8 VOL% (35.7-47.0); Hemoglobin 9.9 GM/DL (12.0-16.0); Immature Granulocytes % 0.4 %; Immature Granulocytes Absolute 0.03 #; Lymphocytes # 1.6 10*3/uL (1.4-4.0); Lymphocytes % 22.5 % (21.3-54.2); Mean Corpuscular HGB Conc 33.2 GM/DL (32-36); Mean Corpuscular Volume 82.8 FL (87-102); Mean Platelet Volume 10.4 FL (9.6-12.0); Monocytes % 9.9 % (1.7-12.7); Neutrophils % 65.4 % (38.7-73.9); Platelet Count 178 T/CUMM (130-400); Red Cell Distribution Width 14.2 % (9.3-17.3); White Blood Count 7.3 T/CUMM (4-12)
[2021-06-12 18:07] LABS: Bilirubin,Total 0.8 MG/DL (0.20-1.00); Calcium 8.7 MG/DL (8.5-10.1); Osmolality,Calculated 288.1 MOS/KG (273-304); Potassium 3.7 MMOL/L (3.5-5.1); Total Protein 6.7 G/DL (6.4-8.2)
[2021-06-12] MEDS ORDERED: GLUCAGON 1 MG VIAL IM PRN (20:58)
[2021-06-12] MEDS ORDERED: DEXTROSE 10% 250 ML BAG IV PRN (21:02)
[2021-06-12] MEDS ORDERED: TEMAZEPAM 15 MG CAPSULE PO SCH (21:30)
[2021-06-12] MEDS ORDERED: EZETIMIBE 10 MG TABLET PO SCH (21:30)
[2021-06-12] MEDS ORDERED: INSULIN GLARGINE 100 UNIT/ML SUBCUT SCH (21:30)
[2021-06-12] MEDS: carvediloL 25 MG TABLET PO SCH (21:40)
[2021-06-12] MEDS: ISOSORBIDE DINITRATE 20 MG TABLET PO SCH (21:40)
[2021-06-12] MEDS: TICAGRELOR 90 MG TABLET PO SCH (21:40)
[2021-06-12] MEDS: INSULIN LISPRO 100 UNIT/ML SUBCUT SCH (21:55)
[2021-06-12] MEDS: SACUBITRIL/VALSARTAN 49-51 MG TABLET PO SCH (21:59)
[2021-06-13 06:24] LABS: Basophils % 0.5 % (0.0-0.8); Eosinophils # 0.1 10*3/uL (0.0-0.87); Eosinophils % 1.5 % (0.00-10.9); Hematocrit 28.4 VOL% (35.7-47.0); Hemoglobin 9.3 GM/DL (12.0-16.0); Immature Granulocytes % 0.3 %; Immature Granulocytes Absolute 0.02 #; Lymphocytes # 1.8 10*3/uL (1.4-4.0); Lymphocytes % 30.3 % (21.3-54.2); Mean Corpuscular HGB Conc 32.7 GM/DL (32-36); Mean Platelet Volume 9.7 FL (9.6-12.0); Monocytes % 11.1 % (1.7-12.7); Neutrophils % 56.3 % (38.7-73.9); Platelet Count 166 T/CUMM (130-400); Red Blood Count 3.42 MC/CUMM (3.8-5.5); Red Cell Distribution Width 14.1 % (9.3-17.3)
[2021-06-13 06:40] LABS: Calcium 8.8 MG/DL (8.5-10.1); Potassium 3.2 MMOL/L (3.5-5.1)
[2021-06-13 06:42] LABS: Risk Ratio 6.88; VLDL Cholesterol 56.2 MG/DL
[2021-06-13] MEDS ORDERED: POTASSIUM CHLORIDE 20 MEQ TABLET PO ONE (09:00)
[2021-06-13] MEDS ORDERED: ENOXAPARIN 40 MG/0.4 ML SYRINGE SUBCUT SCH (09:00)
[2021-06-13] MEDS ORDERED: ASPIRIN EC 81 MG TABLET PO SCH (09:00)
[2021-06-13] MEDS ORDERED: VENLAFAXINE 37.5 MG TABLET PO SCH (09:00)
[2021-06-13] MEDS ORDERED: FUROSEMIDE 40 MG TABLET PO SCH (09:00)
[2021-06-13] MEDS ORDERED: GABAPENTIN 100 MG CAPSULE PO SCH (09:00)
[2021-06-13] MEDS ORDERED: SACUBITRIL/VALSARTAN 49-51 MG TABLET PO SCH (09:30)
[2021-06-13] MEDS ORDERED: ISOSORBIDE DINITRATE 20 MG TABLET PO SCH (09:30)
[2021-06-13] MEDS: TICAGRELOR 90 MG TABLET PO SCH (10:00)
[2021-06-13] MEDS ORDERED: metOLazone 5 MG TABLET PO SCH (10:00)
[2021-06-13] MEDS: carvediloL 25 MG TABLET PO SCH (10:03)
[2021-06-13] MEDS: SACUBITRIL/VALSARTAN 49-51 MG TABLET PO SCH (10:17)
[2021-06-13] MEDS: INSULIN LISPRO 100 UNIT/ML SUBCUT SCH ×2 (10:17→13:13)
[2021-06-13] MEDS: ISOSORBIDE DINITRATE 20 MG TABLET PO SCH (10:18)
[2021-06-13 19:59] VITALS: BP 156/77
[2021-06-13] MEDS ORDERED: ATORVASTATIN 80 MG TABLET PO SCH (21:00)
[2021-06-13] MEDS ORDERED: rOPINIRole 0.25 MG TABLET PO SCH (21:00)
== END 2021-06-13 15:05 | disposition home or self-care (01) ==
LOC: N.ED 16:46 → INTOOBSV 20:56 → N.EDINP 20:56 → N.TELEN 06-13 01:35
PROVIDERS: ADMIT Internal Medicine Geriatric Medicine; ATTEND Internal Medicine Geriatric Medicine